=== PATIENT | male | born 1995 | race Caucasian/White ===

== ENCOUNTER 2016-05-19 21:47 | Emergency (ER) | payer MEDICAID, OTHER ==
[~2016-05-19] VITALS: Ht 193 cm; Wt 88.5 kg
[2016-05-19 21:48] VITALS: BP 136/70; PULSE 82; RESP 16; TEMP 98.2; O2SAT 96
[2016-05-19] MEDS ORDERED: SODIUM CHLOR 0.9% 1000 ML INJ 1,000 ML IV SCH (22:11)
[2016-05-19] MEDS ORDERED: MORPHINE SULFATE 4 MG/ML INJ IV PUSH ONE (22:15)
[2016-05-19] MEDS ORDERED: SODIUM CHLORIDE 0.9% FLUSH 5 ML FLUSH IVF PRN (22:15)
[2016-05-19] MEDS ORDERED: ONDANSETRON HCL 4 MG/2 ML VIAL IVP ONE (22:15)
--- NOTE | 2016-05-19 22:15 | PD ---
HPI Chief Complaint: Abdominal Pain Time Seen by Provider: 22:07 Travel History International Travel<30 days: No Contact w/Intl Traveler<30days: No Traveled to known affect area: No History of Present Illness HPI 20-year-old healthy male here with complaint of abdominal pain. He woke up at 6 AM with right lower abdominal discomfort that has progressively worsened throughout the day and radiates somewhat around the periumbilical region. Associated nausea, vomiting 3. Denies any urinary symptoms, normal bowel movements. No fevers or chills. No previous abdominal surgeries. PFSH Past Medical History Asthma: Yes Diminished Hearing: No Immunizations Current: Yes Past Surgical History Surgical History: No Previous Surgery Social History Alcohol Use: Yes (occ) Tobacco Use: Yes (1 pack/week) Substance Use: Yes (marijuana occ) Allergies-Medications (Allergen,Severity, Reaction): Coded Allergies: Amoxicillin (Verified Allergy, Severe, Hives, 05/19/16) Reported Meds & Prescriptions Reported Meds & Active Scripts Active No Active Prescriptions or Reported Medications Review of Systems Except as stated in HPI: all other systems reviewed are Neg Physical Exam Narrative GENERAL: Well-appearing male in no acute distress SKIN: Warm and dry. HEAD: Normocephalic. EYES: No scleral icterus. No injection or drainage. ENT: Mucous membranes pink and moist. NECK: Supple CARDIOVASCULAR: Regular rate and rhythm. No murmur appreciated. RESPIRATORY: No accessory muscle use. Clear to auscultation. Breath sounds equal bilaterally. GASTROINTESTINAL: Abdomen soft, right lower quadrant tenderness palpation without rebound or guarding, greatest at McBurney's point. No CVA tenderness. No palpable hernia MUSCULOSKELETAL: Normal gait NEUROLOGICAL: Awake and alert. Normal speech. PSYCHIATRIC: Appropriate mood and affect; insight and judgment normal. Data Data Last Documented VS Vital Signs Date Time Temp Pulse Resp B/P Pulse Ox O2 Delivery O2 Flow Rate FiO2 05/19/16 21:48 98.2 82 16 136/70 96 Room Air Orders Complete Blood Count With Diff (05/19/16 22:11) Comprehensive Metabolic Panel (05/19/16 22:11) Lipase (05/19/16 22:11) Urinalysis - C+S If Indicated (05/19/16 22:11) Ct Abd/Pel W Iv Contrast(Rout) (05/19/16 22:11) Iv Access Insert/Monitor (05/19/16 22:11) Ecg Monitoring (05/19/16 22:11) Oximetry (05/19/16 22:11) Morphine Inj (Morphine Inj) (05/19/16 22:15) Ondansetron Inj (Zofran Inj) (05/19/16 22:15) Sodium Chlor 0.9% 1000 Ml Inj (Ns 1000 M (05/19/16 22:11) Sodium Chloride 0.9% Flush (Ns Flush) (05/19/16 22:15) Diatrizoate Liq ( Gastroview Liq) (05/19/16 22:17) Diatrizoate Liq ( Gastroview Liq) (05/19/16 22:18) Oral Contrast - Adult (05/19/16 22:36) Iohexol 350 Inj (Omnipaque 350 Inj) (05/19/16 23:41) Labs Laboratory Tests Test 05/19/16 22:23 White Blood Count 9.4 TH/MM3 Red Blood Count 5.21 MIL/MM3 Hemoglobin 15.6 GM/DL Hematocrit 45.6 % Mean Corpuscular Volume 87.5 FL Mean Corpuscular Hemoglobin 29.9 PG Mean Corpuscular Hemoglobin 34.2 % Concent Red Cell Distribution Width 12.8 % Platelet Count 152 TH/MM3 Mean Platelet Volume 10.5 FL Neutrophils (%) (Auto) 73.7 % Lymphocytes (%) (Auto) 19.3 % Monocytes (%) (Auto) 5.6 % Eosinophils (%) (Auto) 0.9 % Basophils (%) (Auto) 0.5 % Neutrophils # (Auto) 6.9 TH/MM3 Lymphocytes # (Auto) 1.8 TH/MM3 Monocytes # (Auto) 0.5 TH/MM3 Eosinophils # (Auto) 0.1 TH/MM3 Basophils # (Auto) 0.0 TH/MM3 CBC Comment DIFF FINAL Differential Comment Urine Color YELLOW Urine Turbidity CLEAR Urine pH 6.5 Urine Specific [employer] 1.023 Urine Protein NEG mg/dL Urine Glucose (UA) NEG mg/dL Urine Ketones NEG mg/dL Urine Occult Blood NEG Urine Nitrite NEG Urine Bilirubin NEG Urine Urobilinogen LESS THAN 2.0 MG/DL Urine Leukocyte Esterase NEG Urine RBC 1 /hpf Urine WBC 1 /hpf Urine Mucus FEW /lpf Microscopic Urinalysis Comment CULT NOT INDICATED Sodium Level 142 MEQ/L Potassium Level 3.8 MEQ/L Chloride Level 107 MEQ/L Carbon Dioxide Level 28.7 MEQ/L Anion Gap 6 MEQ/L Blood Urea Nitrogen 11 MG/DL Creatinine 0.86 MG/DL Estimat Glomerular Filtration 115 ML/MIN Rate Random Glucose 91 MG/DL Calcium Level 8.9 MG/DL Total Bilirubin 0.4 MG/DL Aspartate Amino Transf 13 U/L (AST/SGOT) Alanine Aminotransferase 33 U/L (ALT/SGPT) Alkaline Phosphatase 108 U/L Total Protein 7.5 GM/DL Albumin 4.1 GM/DL Lipase 63 U/L [facility] Medical Decision Making Medical Screen Exam Complete: Yes Emergency Medical Condition: Yes Medical Record Reviewed: Yes Differential Diagnosis 20-year-old male with right lower quadrant to periumbilical abdominal pain since 6 AM with nausea and vomiting. Highly suspicious for appendicitis, differential includes ureterolithiasis, UTI, mesenteric adenitis, and less likely hepatobiliary pathology. Narrative Course Patient placed on monitor, IV established and blood obtained. Given 4 mg morphine, 4 mg Zofran, 1 L normal saline bolus. CBC, CMP, lipase, urinalysis and CT of the abdomen and pelvis unremarkable. Patient reexamined with improvement. This certainly could be a very early appendicitis as he has had symptoms for less than one day. However his abdomen is benign and with negative workup I'm comfortable with disposition home. Diagnosis Primary Impression: Abdominal pain Qualified Code: R10.31 - Right lower quadrant abdominal pain Referrals: Primary Care Physician as needed Additional Instructions: Tylenol, ibuprofen, Aleve as needed for pain. Return to the ER for the warning signs discussed. Med/Other Pt SpecificInfo: No Change to Meds Scripts No Active Prescriptions or Reported Meds Disposition: 01 DISCHARGE HOME Condition: Stable Zahra Rivera MD May 19, 2016 22:15
[2016-05-19] MEDS ORDERED: DIATRIZOATE MEGLUM/DIATRIZOATE SOD 9 ML CUP ONE ×2 (22:17→22:18)
[2016-05-19 22:42] LABS: AUTOMATED NEUTROPHIL # 6.9 TH/MM3 (1.8-7.7); BASOPHIL % 0.5 % (0.0-2.0); EOSINOPHIL # 0.1 TH/MM3 (0-0.4); EOSINOPHIL % 0.9 % (0.0-4.0); HEMATOCRIT 45.6 % (39.0-51.0); HEMO FLAGS DIFF FINAL; LYMPH % 19.3 % (9.0-44.0); LYMPHOCYTE # 1.8 TH/MM3 (1.0-4.8); MEAN CELL VOLUME 87.5 FL (80.0-100.0); MEAN CORPUSCULAR HEMOGLOBIN 29.9 PG (27.0-34.0); MEAN CORPUSCULAR HGB CONC 34.2 % (32.0-36.0); MONO % 5.6 % (0.0-8.0); NEUT % 73.7 % (16.0-70.0); PLATELET COUNT 152 TH/MM3 (150-450); RED BLOOD COUNT 5.21 MIL/MM3 (4.50-5.90); RED CELL DISTRIBUTION WIDTH 12.8 % (11.6-17.2); WHITE BLOOD COUNT 9.4 TH/MM3 (4.0-11.0)
[2016-05-19 22:47] LABS: BLOOD, URINE NEG (NEG); COMMENT (UR) CULT NOT INDICATED; CULTURE IF INDICATED CULT NOT INDICATED; GLUCOSE,URINE NEG (NEG); KETONE, URINE NEG (NEG); MUCUS URINE FEW /lpf (OCC); NITRITE,URINE NEG (NEG); PH, URINE 6.5 (5.0-8.5); URINE COLOR YELLOW (YELLW/STRAW)
[2016-05-19 23:02] LABS: ALT (GPT) 33 U/L (9-52); ANION GAP 6 MEQ/L (5-15); AST (GOT) 13 U/L (15-39); BICARBONATE 28.7 MEQ/L (21.0-32.0); BLOOD UREA NITROGEN 11 MG/DL (7-18); CHLORIDE 107 MEQ/L (98-107); GLOMERULAR FILTRATION RATE 115 ML/MIN (>89); POTASSIUM 3.8 MEQ/L (3.5-5.1); SODIUM (NA) 142 MEQ/L (136-145)
[2016-05-19 23:04] LABS: ALKALINE PHOSPHATASE 108 U/L (45-117); TOTAL BILIRUBIN ADULT 0.4 MG/DL (0.2-1.0)
[2016-05-19] MEDS ORDERED: IOHEXOL 350 MG/ML 10 ML VIAL (for RAD DIAG) IV ONE (23:41)
--- NOTE | 2016-05-20 00:17 | RADRPT ---
EXAM DATE/TIME: 05/19/2016 23:38 [place] COMPARISON: CT ABDOMEN & PELVIS W CONTRAST, March 18, 2016, 17:20. INDICATIONS : Right lower quadrant pain. IV CONTRAST: 97 cc Omnipaque 350 (iohexol) IV ORAL CONTRAST: Prescribed oral contrast ingested. RADIATION DOSE: 8.53 CTDIvol (mGy) MEDICAL HISTORY : Asthma SURGICAL HISTORY : None. ENCOUNTER: Initial ACUITY: 1 day PAIN SCALE: 6/10 LOCATION: abdomen TECHNIQUE: Volumetric scanning of the abdomen and pelvis was performed. Using automated exposure control and ad justment of the mA and/or kV according to patient size, radiation dose was kept as low as reasonably achievable to obtain optimal diagnostic quality images. FINDINGS: LOWER LUNGS: The visualized lower lungs are clear. LIVER: Homogeneous density without lesion. There is no dilation of the biliary tree. No calcified gallston es. SPLEEN: Normal size without lesion. PANCREAS: Within normal limits. KIDNEYS: Normal in size and shape. There is no mass, stone or hydronephrosis. ADRENAL GLANDS: Within normal limits. VASCULAR: There is no aortic aneurysm. BOWEL/MESENTERY: The stomach, small bowel, and colon demonstrate no acute abnormality. There is no free intraperitone al air or fluid. ABDOMINAL WALL: Within normal limits. RETROPERITONEUM: There is no lymphadenopathy. BLADDER: No wall thickening or mass. REPRODUCTIVE: Within normal limits. INGUINAL: There is no lymphadenopathy or hernia. MUSCULOSKELETAL: Within normal limits for patient age. CONCLUSION: 1. No evidence of acute abdominal or pelvic process. No masses are identified. Chip Lim MD on May 20, 2016 at 0:13 Board Certified Radiologist. This report was verified electronically.
[2016-05-20 00:41] VITALS: BP 130/74
== END 2016-05-20 00:57 | disposition home or self-care (01) ==
LOC: NEPE 21:47
DX: R10.31 Right lower quadrant pain (principal); R11.2 Nausea with vomiting, unspecified; J45.909 Unspecified asthma, uncomplicated; Z72.0 Tobacco use; F12.90 Cannabis use, unspecified, uncomplicated
CPT/HCPCS: 74177; 80053; 81001; 83690; 85025; 96361; 96374; 96375; 99284; J2270; J2405; J7030; Q9963; Q9967

== ENCOUNTER 2016-10-28 16:35 | Emergency (ER) | payer MEDICAID ==
[2016-10-28 16:36] VITALS: BP 159/94; PULSE 81; RESP 17; TEMP 98.5; O2SAT 98
--- NOTE | 2016-10-28 17:01 | PD ---
HPI Chief Complaint: GI Complaint Time Seen by Provider: 17:00 Travel History International Travel<30 days: No Contact w/Intl Traveler<30days: No Traveled to known affect area: No History of Present Illness HPI 20 YO male presents to the ED for evaluation of ~20 hour history of RLQ abdominal pain. Gradual onset. Worsened by bearing down. + N/V. Last episode of vomiting around 3 PM. Was able to eat a hamburger at noon today. Last BM yesterday morning, "normal." He denies fevers, chills, anorexia, diarrhea, constipation, melena, hematochezia, dysuria, penile discharge, back pain. Patient endorses multiple episodes of this pain previously. He states he's had complete workup with CTs each time,all have been negative. He has never followed up on an outpatient basis.. PFSH Past Medical History Asthma: Yes Diminished Hearing: No Immunizations Current: Yes Social History Alcohol Use: Yes (occ) Tobacco Use: Yes (1 pack/week) Substance Use: Yes (marijuana occ) Allergies-Medications (Allergen,Severity, Reaction): Coded Allergies: Amoxicillin (Verified Allergy, Severe, Hives, 10/28/16) Reported Meds & Prescriptions Reported Meds & Active Scripts Active Tramadol (Tramadol HCl) 50 Mg Tab 50 Mg PO Q8H PRN Review of Systems Except as stated in HPI: all other systems reviewed are Neg Physical Exam Narrative GENERAL: Well-nourished, well-developed thin white male in no acute distress. SKIN: Focused skin assessment warm/dry. HEAD: Normocephalic. EYES: No scleral icterus. No injection or drainage. NECK: Supple, trachea midline. No JVD or lymphadenopathy. CARDIOVASCULAR: Regular rate and rhythm without murmurs, gallops, or rubs. RESPIRATORY: Breath sounds equal bilaterally. No accessory muscle use. GASTROINTESTINAL: Abdomen soft, nondistended. Tender to palpation at McBurney' s point. No rebound tenderness. Negative Rovsing sign. Negative obturator sign. Negative psoas sign. No palpable masses. Active bowel sounds. MUSCULOSKELETAL: No cyanosis, or edema. Ambulatory, demonstrates a normal gait. BACK: Nontender without obvious deformity. No CVA tenderness. Data Data Last Documented VS Vital Signs Date Time Temp Pulse Resp B/P Pulse Ox O2 Delivery O2 Flow Rate FiO2 10/28/16 17:31 80 15 146/67 98 Room Air 10/28/16 16:36 98.5 Orders Complete Blood Count With Diff (10/28/16 17:22) Comprehensive Metabolic Panel (10/28/16 17:22) Lipase (10/28/16 17:22) Lactic Acid (10/28/16 17:22) Urinalysis - C+S If Indicated (10/28/16 17:22) Iv Access Insert/Monitor (10/28/16 17:22) Ecg Monitoring (10/28/16 17:22) Oximetry (10/28/16 17:22) NPO (10/28/16 17:22) Ondansetron Inj (Zofran Inj) (10/28/16 17:30) Sodium Chlor 0.9% 1000 Ml Inj (Ns 1000 M (10/28/16 17:22) Sodium Chloride 0.9% Flush (Ns Flush) (10/28/16 17:30) Ed Poc Ultrasound (10/28/16 ) Labs Laboratory Tests Test 10/28/16 10/28/16 17:35 18:25 White Blood Count 11.5 TH/MM3 Red Blood Count 5.02 MIL/MM3 Hemoglobin 14.9 GM/DL Hematocrit 44.7 % Mean Corpuscular Volume 89.1 FL Mean Corpuscular Hemoglobin 29.6 PG Mean Corpuscular Hemoglobin 33.3 % Concent Red Cell Distribution Width 13.1 % Platelet Count 153 TH/MM3 Mean Platelet Volume 11.0 FL Neutrophils (%) (Auto) 71.8 % Lymphocytes (%) (Auto) 20.4 % Monocytes (%) (Auto) 5.8 % Eosinophils (%) (Auto) 1.4 % Basophils (%) (Auto) 0.6 % Neutrophils # (Auto) 8.3 TH/MM3 Lymphocytes # (Auto) 2.4 TH/MM3 Monocytes # (Auto) 0.7 TH/MM3 Eosinophils # (Auto) 0.2 TH/MM3 Basophils # (Auto) 0.1 TH/MM3 CBC Comment DIFF FINAL Differential Comment Urine Color YELLOW Urine Turbidity HAZY Urine pH 7.0 Urine Specific [place] 1.023 Urine Protein NEG mg/dL Urine Glucose (UA) NEG mg/dL Urine Ketones NEG mg/dL Urine Occult Blood NEG Urine Nitrite NEG Urine Bilirubin NEG Urine Urobilinogen LESS THAN 2.0 MG/DL Urine Leukocyte Esterase NEG Urine RBC 1 /hpf Urine WBC 2 /hpf Urine Squamous Epithelial <1 /hpf Cells Urine Amorphous Sediment RARE Urine Bacteria RARE /hpf Urine Mucus FEW /lpf Microscopic Urinalysis Comment CULT NOT INDICATED Sodium Level 142 MEQ/L Potassium Level 3.8 MEQ/L Chloride Level 106 MEQ/L Carbon Dioxide Level 29.1 MEQ/L Anion Gap 7 MEQ/L Blood Urea Nitrogen 17 MG/DL Creatinine 0.79 MG/DL Estimat Glomerular Filtration 126 ML/MIN Rate Random Glucose 87 MG/DL Calcium Level 9.1 MG/DL Total Bilirubin 0.3 MG/DL Aspartate Amino Transf 14 U/L (AST/SGOT) Alanine Aminotransferase 27 U/L (ALT/SGPT) Alkaline Phosphatase 89 U/L Total Protein 7.6 GM/DL Albumin 4.1 GM/DL Lipase 76 U/L Lactic Acid Level 0.7 mmol/L MDM Medical Decision Making Medical Screen Exam Complete: Yes Emergency Medical Condition: Yes Differential Diagnosis Acute appendicitis versus cholecystitis versus bowel obstruction versus UTI versus musculoskeletal pain versus other Narrative Course 20 YO male presents to the ED for evaluation of ~20 hour history of RLQ abdominal pain. Gradual onset. Worsened by bearing down. + N/V. Last episode of vomiting around 3 PM. He denies fevers, chills, anorexia, diarrhea, constipation, melena, hematochezia, dysuria, penile discharge, back pain. Patient endorses multiple episodes of this pain previously. He states he's had complete workup with CTs each time,all have been negative. He has never followed up. Vitals reviewed. Physical exam reveals tenderness to palpation at McBurney point but is otherwise unremarkable. Lab work reveals no leukocytosis, anemia, metabolic derangement or evidence of UTI. View of the patient's record confirms his account of previous episodes of abdominal pain. He is prescribed a short course of pain medications. I discussed the results of the workup and stress the need for outpatient follow-up possible gastroenterology intervention with the patient and his family. He indicated understanding of instructions and is agreeable to the care plan. He is stable and discharged home. Diagnosis Primary Impression: Abdominal pain Qualified Code: R10.9 - Abdominal pain, unspecified location Referrals: Primary Care Physician Patient Instructions: Abdominal Pain (ED), General Instructions Additional Instructions: Rest, hydrate. Take pain medication as prescribed. Do not drive while taking pain medication. Follow-up with primary care provider. Return to the ED for any urgent or emergent medical condition. Med/Other Pt SpecificInfo: Prescription(s) given Scripts Tramadol 50 Mg Tab50 Mg PO Q8H PRN (PAIN) #9 TAB Ref 0 Prov:Bk Boswell MD 10/28/16 Disposition: 01 DISCHARGE HOME Condition: Stable Luci Augustin Oct 28, 2016 17:01
[2016-10-28] MEDS ORDERED: SODIUM CHLOR 0.9% 1000 ML INJ 1,000 ML IV SCH (17:22)
[2016-10-28] MEDS ORDERED: SODIUM CHLORIDE 0.9% FLUSH 10 ML FLUSH IV FLUSH PRN (17:30)
[2016-10-28] MEDS ORDERED: ONDANSETRON HCL 4 MG/2 ML VIAL IVP ONE (17:30)
[2016-10-28 17:31] VITALS: BP 146/67; PULSE 80; RESP 15; O2SAT 98
[2016-10-28 18:16] LABS: AUTOMATED NEUTROPHIL # 8.3 TH/MM3 (1.8-7.7); BASOPHIL # 0.1 TH/MM3 (0-0.2); BASOPHIL % 0.6 % (0.0-2.0); EOSINOPHIL # 0.2 TH/MM3 (0-0.4); EOSINOPHIL % 1.4 % (0.0-4.0); HEMATOCRIT 44.7 % (39.0-51.0); HEMO FLAGS DIFF FINAL; LYMPH % 20.4 % (9.0-44.0); LYMPHOCYTE # 2.4 TH/MM3 (1.0-4.8); MEAN CELL VOLUME 89.1 FL (80.0-100.0); MEAN CORPUSCULAR HEMOGLOBIN 29.6 PG (27.0-34.0); MEAN CORPUSCULAR HGB CONC 33.3 % (32.0-36.0); MONO % 5.8 % (0.0-8.0); NEUT % 71.8 % (16.0-70.0); PLATELET COUNT 153 TH/MM3 (150-450); RED BLOOD COUNT 5.02 MIL/MM3 (4.50-5.90); RED CELL DISTRIBUTION WIDTH 13.1 % (11.6-17.2); WHITE BLOOD COUNT 11.5 TH/MM3 (4.0-11.0)
[2016-10-28 18:35] LABS: BACTERIA, URINE RARE /hpf; BLOOD, URINE NEG (NEG); COMMENT (UR) CULT NOT INDICATED; CULTURE IF INDICATED CULT NOT INDICATED; GLUCOSE,URINE NEG (NEG); KETONE, URINE NEG (NEG); MUCUS URINE FEW /lpf (OCC); NITRITE,URINE NEG (NEG); SQUAMOUS EPITHELIAL CELL URINE <1 /hpf (0-5); URINE COLOR YELLOW (YELLW/STRAW)
[2016-10-28 18:58] LABS: ALKALINE PHOSPHATASE 89 U/L (45-117); ALT (GPT) 27 U/L (9-52); TOTAL BILIRUBIN ADULT 0.3 MG/DL (0.2-1.0)
[2016-10-28 19:07] LABS: ANION GAP 7 MEQ/L (5-15); AST (GOT) 14 U/L (15-39); BICARBONATE 29.1 MEQ/L (21.0-32.0); BLOOD UREA NITROGEN 17 MG/DL (7-18); CHLORIDE 106 MEQ/L (98-107); GLOMERULAR FILTRATION RATE 126 ML/MIN (>89); SODIUM (NA) 142 MEQ/L (136-145)
[2016-10-28] MEDS ORDERED: TRAM50TA PO (19:07)
[2016-10-28 19:10] LABS: POTASSIUM 3.8 MEQ/L (3.5-5.1)
[2016-10-28 20:02] VITALS: BP 130/70
--- NOTE | 2016-10-28 20:39 | PD ---
Data Data Last Documented VS Vital Signs Date Time Temp Pulse Resp B/P Pulse Ox O2 Delivery O2 Flow Rate FiO2 10/28/16 20:02 81 15 130/70 100 10/28/16 17:31 Room Air 10/28/16 16:36 98.5 Orders Complete Blood Count With Diff (10/28/16 17:22) Comprehensive Metabolic Panel (10/28/16 17:22) Lipase (10/28/16 17:22) Lactic Acid (10/28/16 17:22) Urinalysis - C+S If Indicated (10/28/16 17:22) Iv Access Insert/Monitor (10/28/16 17:22) Ecg Monitoring (10/28/16 17:22) Oximetry (10/28/16 17:22) NPO (10/28/16 17:22) Ondansetron Inj (Zofran Inj) (10/28/16 17:30) Sodium Chlor 0.9% 1000 Ml Inj (Ns 1000 M (10/28/16 17:22) Sodium Chloride 0.9% Flush (Ns Flush) (10/28/16 17:30) Ed Poc Ultrasound (10/28/16 ) Labs Laboratory Tests Test 10/28/16 10/28/16 17:35 18:25 White Blood Count 11.5 TH/MM3 Red Blood Count 5.02 MIL/MM3 Hemoglobin 14.9 GM/DL Hematocrit 44.7 % Mean Corpuscular Volume 89.1 FL Mean Corpuscular Hemoglobin 29.6 PG Mean Corpuscular Hemoglobin 33.3 % Concent Red Cell Distribution Width 13.1 % Platelet Count 153 TH/MM3 Mean Platelet Volume 11.0 FL Neutrophils (%) (Auto) 71.8 % Lymphocytes (%) (Auto) 20.4 % Monocytes (%) (Auto) 5.8 % Eosinophils (%) (Auto) 1.4 % Basophils (%) (Auto) 0.6 % Neutrophils # (Auto) 8.3 TH/MM3 Lymphocytes # (Auto) 2.4 TH/MM3 Monocytes # (Auto) 0.7 TH/MM3 Eosinophils # (Auto) 0.2 TH/MM3 Basophils # (Auto) 0.1 TH/MM3 CBC Comment DIFF FINAL Differential Comment Urine Color YELLOW Urine Turbidity HAZY Urine pH 7.0 Urine Specific [place] 1.023 Urine Protein NEG mg/dL Urine Glucose (UA) NEG mg/dL Urine Ketones NEG mg/dL Urine Occult Blood NEG Urine Nitrite NEG Urine Bilirubin NEG Urine Urobilinogen LESS THAN 2.0 MG/DL Urine Leukocyte Esterase NEG Urine RBC 1 /hpf Urine WBC 2 /hpf Urine Squamous Epithelial <1 /hpf Cells Urine Amorphous Sediment RARE Urine Bacteria RARE /hpf Urine Mucus FEW /lpf Microscopic Urinalysis Comment CULT NOT INDICATED Sodium Level 142 MEQ/L Potassium Level 3.8 MEQ/L Chloride Level 106 MEQ/L Carbon Dioxide Level 29.1 MEQ/L Anion Gap 7 MEQ/L Blood Urea Nitrogen 17 MG/DL Creatinine 0.79 MG/DL Estimat Glomerular Filtration 126 ML/MIN Rate Random Glucose 87 MG/DL Calcium Level 9.1 MG/DL Total Bilirubin 0.3 MG/DL Aspartate Amino Transf 14 U/L (AST/SGOT) Alanine Aminotransferase 27 U/L (ALT/SGPT) Alkaline Phosphatase 89 U/L Total Protein 7.6 GM/DL Albumin 4.1 GM/DL Lipase 76 U/L Lactic Acid Level 0.7 mmol/L MDM Supervised Visit with MARY: Yes Narrative Course The history, exam, and medical decision-making in the associated mid-level provider note were completed with my assistance. I reviewed and agree with the findings presented. I attest that I had a [id number] encounter with the patient on the same day, and personally performed and documented my assessment and findings in the medical record. *My assessment and Findings: Is a 20-year-old young man who presents to the emergency department with abdominal pain. He said several doses of right sided abdominal pain in the past. Is a lot of tenderness in the right side greater than the right lower quadrant. This appears consistent with his previous admissions. He is a 2 negative CAT scans recent past for similar symptoms. He has a history of migraines but no history of abdominal problems. No family history of IBD or other abnormalities. Overall his labs are reassuring. Bedside ultrasound does not show any evidence of gallbladder disease, will recommend outpatient follow- up with GI for further evaluation. Procedures Procedure Narrative Point of care ultrasound: Focus transabdominal ultrasounds perform a me at the bedside for the purpose of evaluating for evidence of cholecystitis. Patient had tenderness over the gallbladder but there is no gallbladder wall thickening, gallstones, pericholecystic fluid, or other abnormality. Diagnosis Primary Impression: Abdominal pain Qualified Code: R10.9 - Abdominal pain, unspecified location Referrals: Primary Care Physician Patient Instructions: General Instructions, Abdominal Pain (ED) Departure Forms: Tests/Procedures Additional Instruction: Rest, hydrate. Take pain medication as prescribed. Do not drive while taking pain medication. Follow-up with primary care provider. Return to the ED for any urgent or emergent medical condition. Scripts Tramadol 50 Mg Tab50 Mg PO Q8H PRN (PAIN) #9 TAB Ref 0 Prov:Bk Boswell MD 10/28/16 Disposition: 01 DISCHARGE HOME Condition: Stable Bk Boswell MD Oct 28, 2016 20:39
== END 2016-10-28 20:03 | disposition home or self-care (01) ==
LOC: NEPD 16:35
DX: R10.31 Right lower quadrant pain (principal)
CPT/HCPCS: 80053; 81001; 83605; 83690; 85025; 96374; 99285; J2405; J7030